=== PATIENT | male | born 1970 | race Two or more races ===

== ENCOUNTER 2020-09-05 22:30 | Emergency (ER) | payer OTHER ==
[~2020-09-05] VITALS: Ht 175.3 cm; Wt 72.6 kg
[2020-09-05 23:49] VITALS: BP 120/84
== END 2020-09-05 23:50 | disposition home or self-care (01) ==
LOC: ER 22:34
DX: E11.42 Type 2 diabetes mellitus with diabetic polyneuropathy (principal); Z79.84 Long term (current) use of oral hypoglycemic drugs
CPT/HCPCS: 73630; A4663